=== PATIENT | female | born 2000 | race Two or more races ===

== ENCOUNTER 2020-05-24 16:06 | Emergency (ER) | payer SELFPAY ==
[~2020-05-24] VITALS: Ht 165.1 cm; Wt 63.8 kg
--- NOTE | 2020-05-24 16:47 | NUR ---
youth associate: pt from lobby to room 26 Addendum: 05/24/20 at 1648 by LESLIE youth associate: pt from lobby to room 28
--- NOTE | 2020-05-24 17:00 | NUR ---
PT SITTING UP ON GURNEY. PT HAD 100ML EMESIS. VSS, FAIZAN. AWAITING ED EVAL.
--- NOTE | 2020-05-24 17:22 | NUR ---
REPORT TO JACK WHEELER.
[2020-05-24] MEDS ORDERED: DIPHENHYDRAMINE 25 MG CAPSULE PO ONE (17:30)
[2020-05-24] MEDS ORDERED: ONDANSETRON ODT 8 MG PO ONE (17:30)
[2020-05-24] MEDS ORDERED: DIPHENHYDRAMINE 25 MG CAPSULE ONE (17:35)
[2020-05-24] MEDS ORDERED: ONDANSETRON ODT 4 MG ONE (17:36)
--- NOTE | 2020-05-24 17:42 | NUR ---
REPORT RECIVED, PT IN BED NO DISTRESS
[2020-05-24 19:12] VITALS: BP 107/74
== END 2020-05-24 19:14 | disposition home or self-care (01) ==
LOC: ED 16:45
DX: T78.49XA Other allergy, initial encounter (principal); R06.02 Shortness of breath; R11.2 Nausea with vomiting, unspecified; R10.9 Unspecified abdominal pain; R22.0 Localized swelling, mass and lump, head; F17.200 Nicotine dependence, unspecified, uncomplicated; J45.909 Unspecified asthma, uncomplicated; X58.XXXA Exposure to other specified factors, initial encounter
CPT/HCPCS: 99284; J7512; Q0162; Q0163